=== PATIENT | male | born 1995 | race Caucasian/White ===

== ENCOUNTER 2023-01-22 16:14 | Emergency (ER) | payer OTHER ==
--- NOTE | 2023-01-22 17:37 | ED ---
General Adult HPI - General Source: patient, RN notes reviewed Mode of arrival: ambulatory Limitations: no limitations <Corwin Urbina - Last Filed: 01/22/23 17:36> <Phyllis Angel - Last Filed: 01/23/23 20:16> - General Stated complaint: Head injury Time Seen by Provider: 01/22/23 17:36 - History of Present Illness Initial comments: 27-year-old male presents emergency Department chief complaint of a head injury. Patient states he was at work on Friday when he bent over to pick an object up and hit his head on metal surface. Patient states that he's had pain or sense. Patient was sent here for evaluation. No blood thinners. (Corwin Urbina) Quick note reviewed: This is a 27-year-old male with no significant past medical history presents to the emergency department with a chief complaint of head injury. He reports that he was at work on Friday when he bent over to pick something up off the floor and upon standing up he hit the back of his head on a metal surface. He reports that he has some pain when he tries to move his head to the left. He denies LOC or anticoagluant use. She denies headache, vision changes, vision loss, nausea, vomiting, dizziness, lightheadedness, weakness. He denies any laceration. (Phyllis Angel) - Related Data Allergies Allergy/AdvReac Type Severity Reaction Status Date / Time latex AdvReac Unknown Verified 04/19/22 13:27 Childhood Review of Systems ROS Other: All systems not noted in ROS Statement are negative. <Corwin Urbina - Last Filed: 01/22/23 17:36> ROS Other: All systems not noted in ROS Statement are negative. <Phyllis Angel - Last Filed: 01/23/23 20:16> ROS Statement: Those systems with pertinent positive or pertinent negative responses have been documented in the HPI. Past Medical History Past Medical History: No Reported History History of Any Multi-Drug Resistant Organisms: None Reported Past Surgical History: No Surgical Hx Reported Past Psychological History: No Psychological Hx Reported Smoking Status: Never smoker Past Alcohol Use History: None Reported Past Drug Use History: None Reported <Corwin Urbina - Last Filed: 01/22/23 17:36> General Exam General appearance: alert, in no apparent distress Head exam: Present: atraumatic, normocephalic, normal inspection Eye exam: Present: normal appearance, PERRL, EOMI. Absent: scleral icterus, conjunctival injection, periorbital swelling ENT exam: Present: normal exam, mucous membranes moist Neck exam: Present: normal inspection. Absent: tenderness, meningismus, lymphadenopathy Respiratory exam: Present: normal lung sounds bilaterally. Absent: respiratory distress, wheezes, rales, rhonchi, stridor Cardiovascular Exam: Present: regular rate, normal rhythm, normal heart sounds. Absent: systolic murmur, diastolic murmur, rubs, gallop, clicks GI/Abdominal exam: Present: soft, normal bowel sounds. Absent: distended, tenderness, guarding, rebound, rigid Extremities exam: Present: normal inspection, full ROM, normal capillary refill. Absent: tenderness, pedal edema, joint swelling, calf tenderness Back exam: Present: normal inspection Neurological exam: Present: alert, oriented X3, CN II-XII intact, normal gait Expanded Patient oriented to: Present: person, place, time Speech: Present: fluid speech Cranial nerves: EOM's Intact: Normal Sensory exam: Upper Extremity Light Touch: Normal, Lower Extremity Light Touch: Normal Motor strength exam: RUE: 5, LUE: 5, RLE: 5, LLE: 5 Eye Response: (4) open spontaneously Motor Response: (6) obeys commands Verbal Response: (5) oriented Psychiatric exam: Present: normal affect, normal mood Skin exam: Present: warm, dry, intact, normal color. Absent: rash <Phyllis Angel - Last Filed: 01/23/23 20:16> Course Vital Signs 01/22/23 17:57 Temperature 98.1 F Pulse Rate 78 Respiratory 20 Rate Blood Pressure 124/76 O2 Sat by Pulse 99 Oximetry Medical Decision Making <Phyllis Angel - Last Filed: 01/23/23 20:16> - Medical Decision Making Was pt. sent in by a medical professional or institution (, PA, ONLINE ADVERTISING MANAGER, urgent care, hospital, or care home...) When possible be specific @ -[No] Did you speak to anyone other than the patient for history (EMS, parent, family, police, friend...)? What history was obtained from this source @ -[No] Did you review nursing and triage notes (agree or disagree)? Why? @ -[I reviewed and agree with nursing and triage notes] Were old charts reviewed (outside hosp., previous admission, EMS record, old EKG, old radiological studies, urgent care reports/EKG's, care home records)? Report findings @ -[No old charts were reviewed] Differential Diagnosis (chest pain, altered mental status, abdominal pain women, abdominal pain men, vaginal bleeding, weakness, fever, dyspnea, syncope, headache, dizziness, GI bleed, back pain, seizure, CVA, palpatations, mental health, musculoskeletal)? @ -[not applicable] EKG interpreted by me (3pts min.). @ -[As above] X-rays interpreted by me (1pt min.). @ -[None done] CT interpreted by me (1pt min.). @ CT head and neck without any evidence of an she intracranial process U/S interpreted by me (1pt. min.). @ -[None done] What testing was considered but not performed or refused? (CT, X-rays, U/S, labs)? Why? @ -[None] What meds were considered but not given or refused? Why? @ -[None] Did you discuss the management of the patient with other professionals (pro fessionals i.e. , PA, ONLINE ADVERTISING MANAGER, lab, RT, psych nurse, social media marketing manager, blast furnace supervisor, teacher, animal services officer, assistant case manager)? Give summary @ -[No] Was smoking cessation discussed for >3mins.? @ -[No] Was critical care preformed (if so, how long)? @ -[No] Were there social determinants of health that impacted care today? How? (Homelessness, low income, unemployed, alcoholism, drug addiction, transportation, low edu. Level, literacy, decrease access to med. care, [facility], rehab)? @ -[No] Was there de-escalation of care discussed even if they declined (Discuss DNR or withdrawal of care, Hospice)? DNR status @ -[No] What co-morbidities impacted this encounter? (DM, HTN, Smoking, COPD, CAD, Cancer, CVA, ARF, Chemo, Hep., AIDS, mental health diagnosis, sleep apnea, morbid obesity)? @ -[None] Was patient admitted / discharged? Hospital course, mention meds given and route, prescriptions, significant lab abnormalities, going to OR and other pertinent info. @ -Discharged. This is a 27-year-old male who presents to the emergency department with a chief complaint of head injury. Patient had a thorough history and physical exam performed while in the physical exam is essentially unremarkable. Heart rate regular rate and rhythm, lungs clear to auscultation bilaterally, abdomen soft and nontender. There are no focal neuro deficits noted. Patient is able to ambulate with a steady gait. CT head and C- spine were negative for any acute fracture or intracranial process. I discussed the results in detail with the patient who verbalized understanding and all questions were addressed. Return precautions were discussed. The patient is discharged in stable condition. Case discussed with PIERRE Egan who agrees with plan of care. The patient was encouraged to follow up with his primary care in 1-2 days or as needed. Undiagnosed new problem with uncertain prognosis? @ -[No] Drug Therapy requiring intensive monitoring for toxicity (Heparin, Nitro, Insulin, Cardizem)? @ -[No] Were any procedures done? @ -[No] Diagnosis/symptom? @ -head injury Acute, or Chronic, or Acute on Chronic? @ -acute Uncomplicated (without systemic symptoms) or Complicated (systemic symptoms)? @ -uncomplicated Side effects of treatment? @ -[No] Exacerbation, Progression, or Severe Exacerbation? @ -[No] Poses a threat to life or bodily function? How? (Chest pain, [place], [place], pneumonia, PE, COPD, DKA, ARF, appy, cholecystitis, CVA, Diverticulitis, Homicidal, Suicidal, threat to staff... and all critical care pts) @ -low likelhood (Phyllis Angel) Disposition <Corwin Urbina - Last Filed: 01/22/23 17:36> Is patient prescribed a controlled substance at d/c from ED?: No Time of Disposition: 18:59 <Phyllis Angel - Last Filed: 01/23/23 20:16> Clinical Impression: Head injury Disposition: HOME SELF-CARE Condition: Stable Additional Instructions: Please return to the nearest emergency department if symptoms worsen or persist Please return to the emergency department if symptoms of nausea, vomiting, dizziness, lightheadedness develop Please follow up with her primary care within 1-2 days or as needed Referrals: None,Stated [Primary Care Provider] - 1-2 days
[2023-01-22 18:00] VITALS: BP 124/76; PULSE 78; RESP 20; TEMP 98.1
--- NOTE | 2023-01-22 18:05 | CT ---
EXAMINATION TYPE: CT brain wo con DATE OF EXAM: 01/22/2023 COMPARISON: None HISTORY: headache 2 days post head injury CT DLP: 1202.4 mGycm Automated exposure control for dose reduction was used. Images obtained of the brain with no contrast. Ventricles and sulci appear normal. There is no mass effect or midline shift. No sign of intracranial hemorrhage. No evidence of cerebral edema. The calvarium is intact. There is normal aeration of the mastoid sinuses. The skull base is intact. IMPRESSION: Normal unenhanced head CT scan.
== END 2023-01-22 19:15 | disposition home or self-care (01) ==
LOC: EC 16:14
DX: S09.90XA Unspecified injury of head, initial encounter (principal); Z91.040 Latex allergy status; W22.8XXA Striking against or struck by other objects, initial encounter; Y93.89 Activity, other specified; Y99.0 Civilian activity done for income or pay
CPT/HCPCS: 70450; 99283

== ENCOUNTER 2023-03-02 07:19 | Emergency (ER) | payer OTHER ==
[2023-03-02] MEDS ORDERED: KETOROLAC 15 MG/ML 1 ML VIAL IM STA (07:32)
--- NOTE | 2023-03-02 07:43 | ED ---
General Adult HPI - General Chief complaint: Chest Pain Stated complaint: Rib Pain Time Seen by Provider: 03/02/23 07:21 Source: patient, RN notes reviewed Mode of arrival: ambulatory Limitations: no limitations - History of Present Illness Initial comments: This is a 28-year-old male who presents to the emergency department for rib pain. Patient states that it started last night. Denies any injuries. States that the pain is in the bottom two right ribs. Denies any pain in the abdomen. Pain is worse when he tries to touch his ribs. He has a minor increase in pain with inhalation. Denies any nausea, vomiting, constipation, or diarrhea. Reports a history of problems with his intercostal muscles in the past, and states that it feels similar. Denies any fevers, chills, sore throat, cough, chest pain, palpitations, abdominal pain, nausea, vomiting, diarrhea, back pain, or headaches. MD Complaint: Rib pain - Related Data Previous Rx's Medication Instructions Recorded Ibuprofen 600 mg PO Q8H PRN #15 tab 03/02/23 Lidocaine 5% Oint [Xylocaine 5% 1 applic TOPICAL TID #50 gm 03/02/23 Oint] Allergies Allergy/AdvReac Type Severity Reaction Status Date / Time cinnamon Allergy Anaphylaxis Verified 03/02/23 07:24 latex AdvReac Unknown Verified 03/02/23 07:24 Childhood lettuce AdvReac Unknown Verified 03/02/23 07:24 Review of Systems ROS Statement: Those systems with pertinent positive or pertinent negative responses have been documented in the HPI. ROS Other: All systems not noted in ROS Statement are negative. Past Medical History Past Medical History: No Reported History Additional Past Medical History / Comment(s): migraines History of Any Multi-Drug Resistant Organisms: None Reported Past Surgical History: No Surgical Hx Reported Past Psychological History: No Psychological Hx Reported Smoking Status: Never smoker Past Alcohol Use History: None Reported Past Drug Use History: None Reported General Exam Limitations: no limitations General appearance: alert, in no apparent distress Head exam: Present: atraumatic, normocephalic, normal inspection Respiratory exam: Present: normal lung sounds bilaterally. Absent: respiratory distress, wheezes, rales, rhonchi, stridor Cardiovascular Exam: Present: regular rate, normal rhythm, normal heart sounds. Absent: systolic murmur, diastolic murmur, rubs, gallop, clicks GI/Abdominal exam: Present: soft, other (Tenderness to palpation of the bottom two ribs. ). Absent: distended Expanded GI/Abdominal exam: Absent: Stoner's sign Neurological exam: Present: alert, oriented X3, CN II-XII intact Psychiatric exam: Present: normal affect, normal mood Skin exam: Present: warm, dry, intact, normal color. Absent: rash Course Vital Signs 03/02/23 07:21 Temperature 98.1 F Pulse Rate 79 Respiratory 18 Rate Blood Pressure 117/65 O2 Sat by Pulse 98 Oximetry Medical Decision Making - Medical Decision Making This is a 28-year-old male who presents to the emergency department for rib pain. Was pt. sent in by a medical professional or institution? @ -No Did you speak to anyone other than the patient for history? @ -No Did you review nursing and triage notes? @ -Yes, and I agree, it is accurate with regards to the patient's symptoms. Were old charts reviewed? @ -No Differential Diagnosis? @ -Differential Rib Pain: Costochondritis, rib fracture, pulled muscle, pericarditis, ME, this is not meant to be an all-inclusive list. X-rays interpreted by me (1pt min.)? @ -Chest x-ray obtained, my interpretation identifies no localized consolidations or infiltrates. What testing was considered but not performed? (CT, X-rays, U/S, labs)? Why? @ -None What meds were considered but not given? Why? @ -None Did you discuss the management of the patient with other professionals? @ -No Did you reconcile home meds? @ -No Was smoking cessation discussed for >3mins.? @ -No Was critical care preformed (if so, how long)? @ -No Were there social determinants of health that impacted care today? How? (Homelessness, low income, unemployed, alcoholism, drug addiction, transportation, low edu. Level, literacy, decrease access to med. care, group home, rehab)? @ -No Was there de-escalation of care discussed even if they declined? (Discuss DNR or withdrawal of care, Hospice)? @ -No What co-morbidities impacted this encounter? (DM, HTN, Smoking, COPD, CAD, Cancer, CVA, Hep., AIDS, mental health diagnosis, sleep apnea, morbid obesity)? @ -None Was patient admitted / discharged? @ -Discharged. Chest x-ray obtained revealing no acute findings. Pain is reproducible in nature. I did spend a lot of time palpating the right upper quadrant area to evaluate for signs of gallbladder problems. He has no discomfort when doing this, nor is there pain anywhere else in the abdomen. Symptoms most consistent with something along the lines of an intercostal muscle strain or contusion. Lidocaine patch and IM Toradol provided in the emergency department, which was helpful for his symptoms. Rx for Ibuprofen and Lidocaine cream provided with dosing instructions reviewed. Undiagnosed new problem with uncertain prognosis? @ -None Drug Therapy requiring intensive monitoring for toxicity (Heparin, Nitro, Insulin, Cardizem)? @ -None Were any procedures done? @ -None Diagnosis/symptom? @ -Right sided rib pain Acute, or Chronic, or Acute on Chronic? @ -Acute Uncomplicated (without systemic symptoms) or Complicated (systemic symptoms)? @ -Uncomplicated Side effects of treatment? @ -None Exacerbation, Progression, or Severe Exacerbation] @ -Not applicable Poses a threat to life or bodily function? @ -No Return precautions reviewed in depth, the patient is instructed to return to the emergency department with any new, worsening, or concerning symptoms. Patient verbalized understanding. This case was discussed in detail with the attending ED physician, Dr. Cervantes. Presentation, findings, and treatment plan discussed in detail as well. - Radiology Data Radiology results: report reviewed, image reviewed Disposition Clinical Impression: Rib pain on right side Disposition: HOME SELF-CARE Instructions (If sedation given, give patient instructions): Rib Contusion (ED) Additional Instructions: Return to the emergency department with any new, worsening, or concerning symptoms. Alternate with ibuprofen and Tylenol as needed for pain relief. Apply the lidocaine cream up to three times daily as needed for additional relief. You can also try alternating with ice and heat. Limit physical activity for the meantime as well. Follow up with your primary care provider in 1-2 days. Prescriptions: Ibuprofen 600 mg PO Q8H PRN #15 tab PRN Reason: Pain Lidocaine 5% Oint [Xylocaine 5% Oint] 1 applic TOPICAL TID #50 gm Is patient prescribed a controlled substance at d/c from ED?: No Referrals: None,Stated [Primary Care Provider] - 1-2 days
--- NOTE | 2023-03-02 08:13 | XR ---
EXAMINATION TYPE: XR chest 2V DATE OF EXAM: 03/02/2023 COMPARISON: NONE HISTORY: Chest pain TECHNIQUE: Frontal and lateral views of the chest are obtained. FINDINGS: There is no focal air space opacity. No evidence for pneumothorax. No pleural effusion. The cardiac silhouette size is within normal limits. The osseous structures are grossly intact. IMPRESSION: 1. No acute cardiopulmonary process.
[2023-03-02] MEDS ORDERED: PETROLATUM, WHITE OINT 50 GM TUBE TOPICAL ONE (08:20)
[2023-03-02] MEDS ORDERED: LIDOCAINE 5% PATCH TOPICAL ONE (08:22)
[2023-03-02] MEDS ORDERED: IBUPROFEN 600 MG STARTER PACK 4 TAB BTL PO STA (08:26)
[2023-03-02 08:48] VITALS: BP 121/65; PULSE 611; RESP 16; TEMP 98.6
== END 2023-03-02 08:48 | disposition home or self-care (01) ==
LOC: EC 07:19
DX: R07.81 Pleurodynia (principal); Z91.040 Latex allergy status; Z88.8 Allergy status to other drugs, medicaments and biological substances
CPT/HCPCS: 71046; 99285; 96372; J1885

== ENCOUNTER 2023-07-04 20:22 | Emergency (ER) | payer OTHER ==
[2023-07-04 20:44] VITALS: BP 107/73; PULSE 84; RESP 20; TEMP 98.3
[2023-07-04] MEDS ORDERED: KETOROLAC 15 MG/ML 1 ML VIAL IM STA (21:02)
--- NOTE | 2023-07-04 21:41 | XR ---
EXAMINATION TYPE: XR finger LT DATE OF EXAM: 07/04/2023 9:24 PM INDICATION: Patient age:Male; 28 years old; Reason for study: injury 4th finger; [facility]. COMPARISON: None TECHNIQUE: Frontal, lateral and oblique views of the left finger were obtained. FINDINGS/IMPRESSION: Acute fracture of the dorsal aspect of the fourth digit distal phalanx base. There is associated soft tissue swelling. No additional fractures visualized. No radiopaque foreign bodies.
[2023-07-04] MEDS ORDERED: IBUPROFEN 600 MG STARTER PACK 4 TAB BTL PO STA (21:54)
--- NOTE | 2023-07-04 21:58 | ED ---
Upper Extremity HPI - General Chief Complaint: Extremity Injury, Upper Stated Complaint: Finger Injury Time Seen by Provider: 07/04/23 20:54 Source: patient Mode of arrival: ambulatory Limitations: no limitations - History of Present Illness Initial Comments: Patient is a 28-year-old male who presents to the emergency department with finger injury. Patient crushed his left fourth finger on a door on Friday. His pain has persisted. Patient initially had bruising and redness which she states is improving but the redness has not gone away come completely. He denies fever, chills, nausea, vomiting. - Related Data Previous Rx's Medication Instructions Recorded Ibuprofen 600 mg PO Q8H PRN #15 tab 03/02/23 Lidocaine 5% Oint [Xylocaine 5% 1 applic TOPICAL TID #50 gm 03/02/23 Oint] Ibuprofen [Motrin] 800 mg PO Q6HR #30 tab 07/04/23 Allergies Allergy/AdvReac Type Severity Reaction Status Date / Time cinnamon Allergy Anaphylaxis Verified 07/04/23 20:44 latex AdvReac Unknown Verified 07/04/23 20:44 Childhood lettuce AdvReac Unknown Verified 07/04/23 20:44 Review of Systems ROS Statement: Those systems with pertinent positive or pertinent negative responses have been documented in the HPI. ROS Other: All systems not noted in ROS Statement are negative. Past Medical History Past Medical History: No Reported History Additional Past Medical History / Comment(s): migraines History of Any Multi-Drug Resistant Organisms: None Reported Past Surgical History: No Surgical Hx Reported Past Psychological History: No Psychological Hx Reported Smoking Status: Never smoker Past Alcohol Use History: None Reported Past Drug Use History: None Reported General Exam Limitations: no limitations General appearance: alert Head exam: Present: atraumatic, normocephalic, normal inspection Eye exam: Present: normal appearance, PERRL, EOMI. Absent: scleral icterus, conjunctival injection, periorbital swelling Respiratory exam: Present: normal lung sounds bilaterally. Absent: respiratory distress, wheezes, rales, rhonchi, stridor Cardiovascular Exam: Present: regular rate, normal rhythm, normal heart sounds. Absent: systolic murmur, diastolic murmur, rubs, gallop, clicks Extremities exam: Present: other (Minimal erythema to left fourth digit DIP joint no warmth, blanching, fluctuance, drainable abscess. Tenderness with palpation and movement of the DIP joint. Full range of motion) Course Vital Signs 07/04/23 20:40 Temperature 98.3 F Pulse Rate 84 Respiratory 20 Rate Blood Pressure 107/73 O2 Sat by Pulse 96 Oximetry Procedures - Orthopedic Splinting/Casting Injury #1 Side: left Upper Extremity Immobilizer: synthetic pre-padded splint Medical Decision Making - Medical Decision Making Was pt. sent in by a medical professional or institution (, [facility], POLICE PILOT, urgent care, hospital, or fdc...) When possible be specific @ -No Did you speak to anyone other than the patient for history (EMS, parent, family, police, friend...)? What history was obtained from this source @ -No Did you review nursing and triage notes (agree or disagree)? Why? @ -I reviewed and agree with nursing and triage notes Were old charts reviewed (outside hosp., previous admission, EMS record, old EKG, old radiological studies, urgent care reports/EKG's, fdc records)? Report findings @ -No old charts were reviewed Differential Diagnosis (chest pain, altered mental status, abdominal pain women, abdominal pain men, vaginal bleeding, weakness, fever, dyspnea, syncope, headache, dizziness, GI bleed, back pain, seizure, CVA, palpatations, mental health)? @ -Fracture, dislocation, cellulitis, abscess. This list is not meant to be all-inclusive EKG interpreted by me (3pts min.). @ -As above X-rays interpreted by me (1pt min.). @ -Acute fracture of the dorsal aspect of the fourth distal phalanx base CT interpreted by me (1pt min.). @ -None done U/S interpreted by me (1pt. min.). @ -None done What testing was considered but not performed or refused? (CT, X-rays, U/S, l abs)? Why? @ -None What meds were considered but not given or refused? Why? @ -None Did you discuss the management of the patient with other professionals (professionals i.e. MONA Baker, POLICE PILOT, lab, RT, psych nurse, manager social responsibility, appraiser land, teacher, aoc director combat operations officer, pillowcase sewer)? Give summary @ -No Was smoking cessation discussed for >3mins.? @ -No Was critical care preformed (if so, how long)? @ -No Were there social determinants of health that impacted care today? How? (Homelessness, low income, unemployed, alcoholism, drug addiction, transportation, low edu. Level, literacy, decrease access to med. care, detention, rehab)? @ -No Was there de-escalation of care discussed even if they declined (Discuss DNR or withdrawal of care, Hospice)? DNR status @ -No What co-morbidities impacted this encounter? (DM, HTN, Smoking, COPD, CAD, Cancer, CVA, ARF, Chemo, Hep., AIDS, mental health diagnosis, sleep apnea, morbid obesity)? @ -None Was patient admitted / discharged? Hospital course, mention meds given and route, prescriptions, significant lab abnormalities, going to OR and other pertinent info. @ -Patient presented with finger pain after crush injury. X-ray interpreted by myself showing acute fracture of the dorsal aspect of the fourth distal phalanx base. Patient has minimal erythema which he states is improving. No abrasion noted. No warmth, blanching, fluctuance, drainable abscess. Neurovascularly intact. Finger splint placed. Discussed fracture care in detail. Patient to watch redness closely and return if symptoms persist or worsen Undiagnosed new problem with uncertain prognosis? @ -No Drug Therapy requiring intensive monitoring for toxicity (Heparin, Nitro, Insulin, Cardizem)? @ -No Were any procedures done? @Splinting Diagnosis/symptom? @ -Left finger fracture Acute, or Chronic, or Acute on Chronic? @ -Acute Uncomplicated (without systemic symptoms) or Complicated (systemic symptoms)? @ -[Uncomplicated Side effects of treatment? @ -No Exacerbation, Progression, or Severe Exacerbation? @ -[No] Poses a threat to life or bodily function? How? (Chest pain, [place], [place], pneumonia, PE, COPD, DKA, ARF, appy, cholecystitis, CVA, Diverticulitis, Homicidal, Suicidal, threat to staff... and all critical care pts) @ -[No] Dr. Tello is my attending Disposition Clinical Impression: Finger fracture, left Disposition: HOME SELF-CARE Condition: Good Instructions (If sedation given, give patient instructions): Finger Fracture (ED) Additional Instructions: Ice injury. Keep splint on. Take Motrin as needed for pain. Follow-up with methods specialist in 1-2 days return to the emergency department if you experience new, concerning, or worsening symptoms Prescriptions: Ibuprofen [Motrin] 800 mg PO Q6HR #30 tab Is patient prescribed a controlled substance at d/c from ED?: No Referrals: None,Stated [Primary Care Provider] - 1-2 days Hugo Huff MD [STAFF PHYSICIAN] - 1-2 days
== END 2023-07-04 22:30 | disposition home or self-care (01) ==
LOC: EC 20:22
DX: S62.605A Fracture of unspecified phalanx of left ring finger, initial encounter for closed fracture (principal); Z91.018 Allergy to other foods; Z91.040 Latex allergy status; W23.0XXA Caught, crushed, jammed, or pinched between moving objects, initial encounter
CPT/HCPCS: 73140; 99283; 96372; J1885

== ENCOUNTER 2023-09-26 19:13 | Emergency (ER) | payer OTHER ==
--- NOTE | 2023-09-26 19:35 | ED ---
General Adult HPI - General Chief complaint: ENT Stated complaint: hiccups for 2 days Time Seen by Provider: 09/26/23 19:33 Source: patient, RN notes reviewed Mode of arrival: ambulatory Limitations: no limitations - History of Present Illness Initial comments: 28-year-old male presenting with chief complaint of hiccups for the last 3 days. Patient states that he has started to vomit today due to the persistent hiccups. He has no other symptoms. No injury, chest pain, difficulty breathing, abdominal pain. - Related Data Previous Rx's Medication Instructions Recorded Ibuprofen 600 mg PO Q8H PRN #15 tab 03/02/23 Lidocaine 5% Oint [Xylocaine 5% 1 applic TOPICAL TID #50 gm 03/02/23 Oint] Ibuprofen [Motrin] 800 mg PO Q6HR #30 tab 07/04/23 Allergies Allergy/AdvReac Type Severity Reaction Status Date / Time cinnamon Allergy Anaphylaxis Verified 09/26/23 19:31 latex AdvReac Unknown Verified 09/26/23 19:31 Childhood lettuce AdvReac Unknown Verified 09/26/23 19:31 Review of Systems ROS Statement: Those systems with pertinent positive or pertinent negative responses have been documented in the HPI. ROS Other: All systems not noted in ROS Statement are negative. Past Medical History Past Medical History: No Reported History Additional Past Medical History / Comment(s): migraines History of Any Multi-Drug Resistant Organisms: None Reported Past Surgical History: No Surgical Hx Reported Past Psychological History: No Psychological Hx Reported Smoking Status: Never smoker Past Alcohol Use History: None Reported Past Drug Use History: None Reported General Exam - General Exam Comments Initial Comments: 28-year-old male presenting with chief complaint of persistent hiccups. Symptoms ongoing for 3 days. Patient states that he is starting to vomit. Limitations: no limitations General appearance: alert, in no apparent distress Head exam: Present: atraumatic, normocephalic, normal inspection Eye exam: Present: normal appearance, EOMI Expanded TM/Canal exam: Cerumen Impaction: Right TM, Left TM Neck exam: Present: normal inspection, full ROM Respiratory exam: Present: normal lung sounds bilaterally. Absent: respiratory distress, wheezes, rales, rhonchi, stridor Cardiovascular Exam: Present: regular rate, normal rhythm, normal heart sounds. Absent: systolic murmur, diastolic murmur, rubs, gallop, clicks Neurological exam: Present: alert, oriented X3 Psychiatric exam: Present: normal affect, normal mood Skin exam: Present: warm, dry, intact, normal color. Absent: rash Course Vital Signs 09/26/23 09/26/23 19:28 23:08 Temperature 98.2 F Pulse Rate 78 63 Respiratory 18 18 Rate Blood Pressure 128/75 107/68 O2 Sat by Pulse 100 96 Oximetry Medical Decision Making - Medical Decision Making Was pt. sent in by a medical professional or institution (, MONA, COMMUNICATION MANAGER, urgent care, hospital, or shelter...) When possible be specific @ -No Did you speak to anyone other than the patient for history (EMS, parent, family, police, friend...)? What history was obtained from this source @ -No Did you review nursing and triage notes (agree or disagree)? Why? @ -I reviewed and agree with nursing and triage notes Were old charts reviewed (outside hosp., previous admission, EMS record, old EKG, old radiological studies, urgent care reports/EKG's, shelter records)? Report findings @ -No old charts were reviewed Differential Diagnosis (chest pain, altered mental status, abdominal pain women, abdominal pain men, vaginal bleeding, weakness, fever, dyspnea, syncope, headache, dizziness, GI bleed, back pain, seizure, CVA, palpatations, mental health, musculoskeletal)? @ -not applicable EKG interpreted by me (3pts min.). @ -As above X-rays interpreted by me (1pt min.). @ -None done CT interpreted by me (1pt min.). @ -None done U/S interpreted by me (1pt. min.). @ -None done What testing was considered but not performed or refused? (CT, X-rays, U/S, labs)? Why? @ -None What meds were considered but not given or refused? Why? @ -None Did you discuss the management of the patient with other professionals (professionals i.e. MONA Baker, COMMUNICATION MANAGER, lab, RT, psych nurse, social work manager, machine coremaker, teacher, hydrographical technical officer, correctional counselor/case manager)? Give summary @ -No Was smoking cessation discussed for >3mins.? @ -No Was critical care preformed (if so, how long)? @ -No Were there social determinants of health that impacted care today? How? (Homelessness, low income, unemployed, alcoholism, drug addiction, transportation, low edu. Level, literacy, decrease access to med. care, intermediate, rehab)? @ -No Was there de-escalation of care discussed even if they declined (Discuss DNR or withdrawal of care, Hospice)? DNR status @ -No What co-morbidities impacted this encounter? (DM, HTN, Smoking, COPD, CAD, Cancer, CVA, ARF, Chemo, Hep., AIDS, mental health diagnosis, sleep apnea, morbid obesity)? @ -None Was patient admitted / discharged? Hospital course, mention meds given and route, prescriptions, significant lab abnormalities, going to OR and other pertinent info. @ -28-year-old male presenting with chief complaint of hiccups for the last 3 days. History and physical examination are conducted. On physical exam there is bilateral cerumen impaction. The ears are irrigated and patient is also given 25 mg of Thorazine IM. On reassessment patient reports that his hiccupps have stopped. Follow-up with PCP. Report back to ER with any new or worsening symptoms. Discussed return parameters and answered all questions. Patient conveyed verbal understanding and agreed to the plan. I discussed this case in detail with my attending Dr. Tello Undiagnosed new problem with uncertain prognosis? @ -No Drug Therapy requiring intensive monitoring for toxicity (Heparin, Nitro, Insulin, Cardizem)? @ -No Were any procedures done? @ -No Diagnosis/symptom? @ -Hiccups Acute, or Chronic, or Acute on Chronic? @ -acute Uncomplicated (without systemic symptoms) or Complicated (systemic symptoms)? @ -Uncomplicated Side effects of treatment? @ -No Exacerbation, Progression, or Severe Exacerbation? @ -No Poses a threat to life or bodily function? How? (Chest pain, [place], [place], pneumonia, PE, COPD, DKA, ARF, appy, cholecystitis, CVA, Diverticulitis, Homicidal, Suicidal, threat to staff... and all critical care pts) @ -No Disposition Clinical Impression: Hiccups Disposition: HOME SELF-CARE Condition: Good Instructions (If sedation given, give patient instructions): Hiccups (ED) Additional Instructions: Follow-up with PCP. Report back to ER with any new or worsening symptoms. Is patient prescribed a controlled substance at d/c from ED?: No Referrals: None,Stated [Primary Care Provider] - 1-2 days Time of Disposition: 22:52
[2023-09-26 19:37] VITALS: RESP 18; TEMP 98.2
[2023-09-26] MEDS ORDERED: chlorproMAZINE 25 MG/ML 2 ML AMP IM STA (21:28)
[2023-09-26 23:16] VITALS: BP 107/68; PULSE 63
== END 2023-09-26 23:50 | disposition home or self-care (01) ==
LOC: EC 19:13
DX: R06.6 Hiccough (principal); H61.23 Impacted cerumen, bilateral; Z91.018 Allergy to other foods; Z91.040 Latex allergy status
CPT/HCPCS: 99283; 96372; J3230

== ENCOUNTER 2023-10-16 21:45 | Emergency (ER) | payer OTHER ==
[2023-10-16 22:27] VITALS: RESP 18; TEMP 98.4
--- NOTE | 2023-10-16 23:24 | ED ---
General Adult HPI - General Source: patient, RN notes reviewed Mode of arrival: ambulatory Limitations: no limitations <Yadira Haynes - Last Filed: 10/16/23 23:22> - General Source: RN notes reviewed, old records reviewed Limitations: no limitations - History of Present Illness -: days(s) Location: back Radiation: non-radiation Severity scale (1-10): 4 Quality: aching Consistency: constant Improves with: none Worsens with: none Associated Symptoms: denies other symptoms Treatments Prior to Arrival: none <Noah Montana - Last Filed: 10/25/23 17:22> - General Chief complaint: Back Pain/Injury Stated complaint: Numbness of back Time Seen by Provider: 10/16/23 23:22 - History of Present Illness Initial comments: 28 year old male presents to the emergency department for back pain and "numbness." He states that he has noticed some decreased sensation in his midback about 2 weeks ago. Yesterday he states that he noticed an area that he was "not able to feel" on his mid back. Denies fever, chill, loss of bowel or bladder function, urinary retention. (Yadira Haynes) This is a 28-year-old male to the emergency department today for evaluation of back pain numbness and tingling in his back area. Middle upper aspect of his back. Patient is getting massage from his began to notice the symptoms. They have been persistent for a few days now. He has no injury or trauma. No shortness of breath no chest pain. No recent fevers no nausea vomiting or diarrhea no other complaints no medical history takes no medications (Noah Montana) - Related Data Previous Rx's Medication Instructions Recorded Ibuprofen 600 mg PO Q8H PRN #15 tab 03/02/23 Lidocaine 5% Oint [Xylocaine 5% 1 applic TOPICAL TID #50 gm 03/02/23 Oint] Ibuprofen [Motrin] 800 mg PO Q6HR #30 tab 07/04/23 Allergies Allergy/AdvReac Type Severity Reaction Status Date / Time cinnamon Allergy Anaphylaxis Verified 10/16/23 22:09 latex AdvReac Unknown Verified 10/16/23 22:09 Childhood lettuce AdvReac Unknown Verified 10/16/23 22:09 Review of Systems ROS Other: All systems not noted in ROS Statement are negative. <Yadira Haynes - Last Filed: 10/16/23 23:22> ROS Other: All systems not noted in ROS Statement are negative. <Noah Montana - Last Filed: 10/25/23 17:22> ROS Statement: Those systems with pertinent positive or pertinent negative responses have been documented in the HPI. Past Medical History Past Medical History: No Reported History Additional Past Medical History / Comment(s): migraines History of Any Multi-Drug Resistant Organisms: None Reported Past Surgical History: No Surgical Hx Reported Past Psychological History: No Psychological Hx Reported Smoking Status: Never smoker Past Alcohol Use History: None Reported Past Drug Use History: None Reported <Glenn Haynessey - Last Filed: 10/16/23 23:22> General Exam Limitations: no limitations <Glenn Haynessey - Last Filed: 10/16/23 23:22> General appearance: alert, in no apparent distress Head exam: Present: atraumatic, normocephalic, normal inspection Eye exam: Present: normal appearance, PERRL, EOMI. Absent: scleral icterus, conjunctival injection, periorbital swelling ENT exam: Present: normal exam, mucous membranes moist Neck exam: Present: normal inspection. Absent: tenderness, meningismus, lym phadenopathy Respiratory exam: Present: normal lung sounds bilaterally. Absent: respiratory distress, wheezes, rales, rhonchi, stridor Cardiovascular Exam: Present: regular rate, normal rhythm, normal heart sounds. Absent: systolic murmur, diastolic murmur, rubs, gallop, clicks GI/Abdominal exam: Present: soft, normal bowel sounds. Absent: distended, tenderness, guarding, rebound, rigid Extremities exam: Present: normal inspection, full ROM, normal capillary refill. Absent: tenderness, pedal edema, joint swelling, calf tenderness Back exam: Present: normal inspection Neurological exam: Present: alert, oriented X3, CN II-XII intact Psychiatric exam: Present: normal affect, normal mood Skin exam: Present: warm, dry, intact, normal color. Absent: rash <Noah Montana - Last Filed: 10/25/23 17:22> - General Exam Comments Initial Comments: Visual Physical Exam Vital signs reviewed General: Well-appearing, nontoxic, no acute distress. Head: Normocephalic, atraumatic Eyes: PERRLA, EOMI ENT: Airway patent Chest: Nonlabored breathing Skin: No visual rash, normal skin tone Neuro: Alert and oriented 3 Musculoskeletal: No gross abnormalities (Yadira Haynes) Course <Noah Montana - Last Filed: 10/25/23 17:22> Vital Signs 10/16/23 10/17/23 22:08 02:30 Temperature 98.4 F 98.4 F Pulse Rate 82 62 Respiratory 18 18 Rate Blood Pressure 115/72 106/68 O2 Sat by Pulse 98 97 Oximetry - Reevaluation(s) Reevaluation #1: 10/17/23 02:05 Medical records reviewed (Noah Montana) Reevaluation #2: 10/17/23 02:05 patient symptoms are relatively unchanged (Noah Montana) Reevaluation #3: 10/17/23 02:05 patient for results and questions answered (Noah Montana) Reevaluation #4: 10/17/23 02:05 Was pt. sent in by a medical professional or institution (, PA, [employer] INTERFACE DEVELOPER, urgent care, hospital, or usp...) When possible be specific @ -no Did you speak to anyone other than the patient for history (EMS, parent, family, police, friend...)? What history was obtained from this source @ -no Did you review nursing and triage notes (agree or disagree)? Why? @ -agree Are old charts reviewed (outside hosp., previous admission, EMS record, old EKG, old radiological studies, urgent care reports/EKG's, usp records)? Report findings @ -yes Differential Diagnosis (chest pain, altered mental status, abdominal pain women, abdominal pain men, vaginal bleeding, weakness, fever, dyspnea, syncope, headache, dizziness, GI bleed, back pain, seizure, CVA, palpatations, mental health, musculoskeletal)? @ -prior EKG interpreted by me (3pts min.). @ -no X-rays interpreted by me (1pt min.). @ -yes negative for acute disease CT interpreted by me (1pt min.). @ -no U/S interpreted by me (1pt. min.). @ -no What testing was considered but not performed or refused? (CT, X-rays, U/S, labs)? Why? @ -none What meds were considered but not given or refused? Why? @ -none Did you discuss the management of the patient with other professionals (professionals i.e. , PA, [employer] INTERFACE DEVELOPER, lab, RT, psych nurse, director social service, information assistant, teacher, first aid officer, casework manager)? Give summary @ -no Was smoking cessation discussed for >3mins.? @ -no Was critical care preformed (if so, how long)? @ -no Were there social determinants of health that impacted care today? How? (Homelessness, low income, unemployed, alcoholism, drug addiction, transportation, low edu. Level, literacy, decrease access to med. care, [facility], rehab)? @ -none Was there de-escalation of care discussed even if they declined (Discuss DNR or withdrawal of care, Hospice)? DNR status @ -no What co-morbidities impacted this encounter? (DM, HTN, Smoking, COPD, CAD, Cancer, CVA, ARF, Chemo, Hep., AIDS, mental health diagnosis, sleep apnea, morbid obesity)? @ -none Was patient admitted / discharged? Hospital course, mention meds given and route, prescriptions, significant lab abnormalities, going to OR and other pertinent info. @ - 28 male to the ER for evaluation of some back pain appears to numbness and tingling of his back. Imaging is negative here in the ER. Patient is in no acute distress and can be discharged home \\ Discharge Undiagnosed new problem with uncertain prognosis? @ -no Drug Therapy requiring intensive monitoring for toxicity (Heparin, Nitro, Insulin, Cardizem)? @ -no Were any procedures done? @ -no Diagnosis/symptom? @ -Acute back pain Acute, or Chronic, or Acute on Chronic? @ -Acute Uncomplicated (without systemic symptoms) or Complicated (systemic symptoms)? @ -Complicated Side effects of treatment? @ -no Exacerbation, Progression, or Severe Exacerbation? @ -exacerbation Poses a threat to life or bodily function? How? (Chest pain, [place], [place], pneumonia, PE, COPD, DKA, ARF, appy, cholecystitis, CVA, Diverticulitis, Homicidal, Suicidal, threat to staff... and all critical care pts) @ -yes (Noah Montana) Reevaluation #5: Differential Back Pain: Strain, zoster, cauda equina syndrome, epidural abscess, vertebral osteomyelitis, discitis, fracture, subluxation, disc herniation, DJD, spinal stenosis, dissection, AAA, pancreatitis, peptic ulcer disease, pyelonephritis, kidney stone, this is not meant to be an all-inclusive list. (Noah Montana) Medical Decision Making <Yadira Haynes - Last Filed: 10/16/23 23:22> - Radiology Data Radiology results: report reviewed (x-ray chest and back and negative for acute disease), image reviewed <Noah Montana - Last Filed: 10/25/23 17:22> - Medical Decision Making Quick note preformed by Yadira Haynes PA-C (Yadira Haynes) 28 male to the ER for evaluation of some back pain appears to numbness and tingling of his back. Imaging is negative here in the ER. Patient is in no acute distress and can be discharged home (Noah Montana) Disposition <Yadira Haynes - Last Filed: 10/16/23 23:22> Is patient prescribed a controlled substance at d/c from ED?: No Time of Disposition: 02:10 <Noah Montana - Last Filed: 10/25/23 17:22> Clinical Impression: Thoracic back pain, Mid back pain, Paresthesia Disposition: HOME SELF-CARE Condition: Fair Instructions (If sedation given, give patient instructions): Paresthesia (ED) Referrals: None,Stated [Primary Care Provider] - 1-2 days
[2023-10-17] MEDS ORDERED: KETOROLAC 15 MG/ML 1 ML VIAL IM STA (01:08)
[2023-10-17] MEDS ORDERED: dexAMETHasone 2 MG TAB PO STA (01:08)
[2023-10-17 02:36] VITALS: BP 106/68; PULSE 62
--- NOTE | 2023-10-17 03:56 | XR ---
EXAM: XR Chest, 2 Views CLINICAL HISTORY: ITS.REASON XR Reason: pain TECHNIQUE: Frontal and lateral views of the chest. COMPARISON: No relevant prior studies available. FINDINGS: Lungs: No consolidation or mass. Pleural space: No effusion. Heart: No cardiomegaly. Bones/joints: No acute findings. IMPRESSION: No acute cardiopulmonary process.
--- NOTE | 2023-10-17 03:57 | XR ---
EXAM: XR Thoracic Spine, 2 Views CLINICAL HISTORY: ITS.REASON XR Reason: pain TECHNIQUE: Frontal and lateral views of the thoracic spine. COMPARISON: No relevant prior studies available. FINDINGS: Vertebrae: No acute fracture. Normal sagittal alignment. Minimal dextroscoliosis Disc spaces: No significant narrowing. Soft tissues: Unremarkable. IMPRESSION: No acute osseous findings.
== END 2023-10-17 02:31 | disposition home or self-care (01) ==
LOC: EC 21:45
DX: M54.6 Pain in thoracic spine (principal); R20.2 Paresthesia of skin; Z91.040 Latex allergy status; Z88.8 Allergy status to other drugs, medicaments and biological substances
CPT/HCPCS: 99283 ×2; 96372 ×2; 72070; 71046; J8540; J1885

== ENCOUNTER 2024-01-27 18:58 | Emergency (ER) | payer OTHER ==
--- NOTE | 2024-01-27 19:23 | ED ---
General Adult HPI - General Stated complaint: cough runny nose NVD Time Seen by Provider: 01/27/24 19:23 - History of Present Illness Initial comments: 28-year-old male presenting to the ED with a chief complaint of URI symptoms. Patient states 2 days ago onset of cough and runny nose. Also did note some associated nausea and vomiting however at this time that is resolved. No fever or chills. No chest pain or shortness of breath. - Related Data Previous Rx's Medication Instructions Recorded Ibuprofen 600 mg PO Q8H PRN #15 tab 03/02/23 Lidocaine 5% Oint [Xylocaine 5% 1 applic TOPICAL TID #50 gm 03/02/23 Oint] Ibuprofen [Motrin] 800 mg PO Q6HR #30 tab 07/04/23 Allergies Allergy/AdvReac Type Severity Reaction Status Date / Time cinnamon Allergy Anaphylaxis Verified 01/27/24 19:49 latex AdvReac Unknown Verified 01/27/24 19:49 Childhood lettuce AdvReac Unknown Verified 01/27/24 19:49 Review of Systems ROS Statement: Those systems with pertinent positive or pertinent negative responses have been documented in the HPI. ROS Other: All systems not noted in ROS Statement are negative. Past Medical History Past Medical History: No Reported History Additional Past Medical History / Comment(s): migraines History of Any Multi-Drug Resistant Organisms: None Reported Past Surgical History: No Surgical Hx Reported Past Psychological History: No Psychological Hx Reported Smoking Status: Never smoker Past Alcohol Use History: None Reported Past Drug Use History: None Reported General Exam - General Exam Comments Initial Comments: Visual Physical Exam Vital signs reviewed General: Well-appearing, nontoxic, no acute distress. Head: Normocephalic, atraumatic Eyes: PERRLA, EOMI ENT: Airway patent Chest: Nonlabored breathing Skin: No visual rash, normal skin tone Neuro: Alert and oriented 3 Musculoskeletal: No gross abnormalities General appearance: alert, in no apparent distress Eye exam: Present: normal appearance ENT exam: Present: mucous membranes moist Neck exam: Present: normal inspection Respiratory exam: Present: normal lung sounds bilaterally. Absent: respiratory distress, accessory muscle use Cardiovascular Exam: Present: regular rate, normal rhythm GI/Abdominal exam: Present: soft Neurological exam: Present: alert, oriented X3 Skin exam: Present: warm, dry Course Vital Signs 01/27/24 19:38 Temperature 98.8 F Pulse Rate 102 H Respiratory 20 Rate Blood Pressure 120/87 O2 Sat by Pulse 99 Oximetry Medical Decision Making - Medical Decision Making Quicknote portion performed. Signed Mario Rene PA-C Was pt. sent in by a medical professional or institution (MONA Baker, [employer] MANAGER, urgent care, hospital, or fpc...) When possible be specific @ -No Did you speak to anyone other than the patient for history (EMS, parent, family, police, friend...)? What history was obtained from this source @ -No Did you review nursing and triage notes (agree or disagree)? Why? @ -I reviewed and agree with nursing and triage notes Were old charts reviewed (outside hosp., previous admission, EMS record, old EKG, old radiological studies, urgent care reports/EKG's, fpc records)? Report findings @ -No old charts were reviewed Differential Diagnosis (chest pain, altered mental status, abdominal pain women, abdominal pain men, vaginal bleeding, weakness, fever, dyspnea, syncope, headache, dizziness, GI bleed, back pain, seizure, CVA, palpatations, mental health, musculoskeletal)? @ -Differential Dyspnea: Coronary syndrome, arrhythmia, tamponade, asthma, COPD, pulmonary embolism, pneumonia, pneumothorax, pulmonary effusion, anaphylaxis, diabetic ketoacidosis, flailed chest, pulmonary contusion, diaphragmatic rupture, anemia, neuromuscular, this is not meant to be an all-inclusive list. EKG interpreted by me (3pts min.). @ -None X-rays interpreted by me (1pt min.). @ -Chest x-ray interpreted me which revealed no evidence of acute finding. CT interpreted by me (1pt min.). @ -None done U/S interpreted by me (1pt. min.). @ -None done What testing was considered but not performed or refused? (CT, X-rays, U/S, labs)? Why? @ -None What meds were considered but not given or refused? Why? @ -None Did you discuss the management of the patient with other professionals (professionals i.e. MONA Baker, [employer] MANAGER, lab, RT, psych nurse, social media sr strategy manager, vice president of instruction, teacher, certification officer, heel caser)? Give summary @ -No Was smoking cessation discussed for >3mins.? @ -No Was critical care preformed (if so, how long)? @ -No Were there social determinants of health that impacted care today? How? (Homelessness, low income, unemployed, alcoholism, drug addiction, transportation, low edu. Level, literacy, decrease access to med. care, [facility], rehab)? @ -No Was there de-escalation of care discussed even if they declined (Discuss DNR or withdrawal of care, Hospice)? DNR status @ -No What co-morbidities impacted this encounter? (DM, HTN, Smoking, COPD, CAD, Cancer, CVA, ARF, Chemo, Hep., AIDS, mental health diagnosis, sleep apnea, morbid obesity)? @ -None Was patient admitted / discharged? Hospital course, mention meds given and route, prescriptions, significant lab abnormalities, going to OR and other pertinent info. @ -Discharge 28-year-old male presented to the ED with complaints of rhinorrhea and cough for the past 2 days. Exam benign at this time. Vital signs stable afebrile. Serology panel unremarkable. Chest x-ray revealed no evidence of acute process. Patient discharged home in stable condition. Symptoms likely viral in nature. Advised supportive care. Discussed return precautions with patient who verbalized.. Undiagnosed new problem with uncertain prognosis? @ -No Drug Therapy requiring intensive monitoring for toxicity (Heparin, Nitro, Insulin, Cardizem)? @ -No Were any procedures done? @ -No Diagnosis/symptom? @ -Viral URI Acute, or Chronic, or Acute on Chronic? @ -Acute Uncomplicated (without systemic symptoms) or Complicated (systemic symptoms)? @ -Uncomplicated Side effects of treatment? @ -No Exacerbation, Progression, or Severe Exacerbation? @ -No Poses a threat to life or bodily function? How? (Chest pain, [place], [place], pneumonia, PE, COPD, DKA, ARF, appy, cholecystitis, CVA, Diverticulitis, Homicidal, Suicidal, threat to staff... and all critical care pts) @ -No - Lab Data Lab Results 01/27/24 Range/Units 19:56 Influenza Type A (PCR) Not Detected (Not Detectd) Influenza Type B (PCR) Not Detected (Not Detectd) RSV (PCR) Not Detected (Not Detectd) SARS-CoV-2 (PCR) Not Detected (Not Detectd) Disposition Clinical Impression: Viral URI Disposition: HOME SELF-CARE Condition: Good Instructions (If sedation given, give patient instructions): Upper Respiratory Infection (ED) Additional Instructions: Please return to the Emergency Department if symptoms worsen or any other concerns. Monitor for worsening symptoms as discussed. Please use [id number] medications as needed for symptoms. Follow-up with your primary care provider. Is patient prescribed a controlled substance at d/c from ED?: No Referrals: None,Stated [Primary Care Provider] - 1-2 days Time of Disposition: 21:39
[2024-01-27 20:18] VITALS: BP 120/87; PULSE 102; RESP 20; TEMP 98.8
--- NOTE | 2024-01-27 21:19 | XR ---
EXAMINATION TYPE: XR chest 2V DATE OF EXAM: 01/27/2024 7:58 PM CLINICAL INDICATION:Male, 28 years old with history of r/o pna; [facility] COMPARISON: 10/17/2023 TECHNIQUE: XR chest 2V. Frontal and lateral views of the chest.. FINDINGS: Lines/Tubes/Devices: No indwelling lines are seen. Heart/mediastinum: Heart size is normal. Mediastinum appears normal. Pulmonary vascularity: Not increased, Lungs/Pleura: There is no evidence of pleural effusion, focal consolidation, or pneumothorax. Simila r appearance of mild coarsening of the interstitium likely chronic changes. Musculoskeletal: No acute osseous abnormality demonstrated in the limits of the exam. Other findings: None. IMPRESSION: No acute findings, or significant interval change.
== END 2024-01-27 21:43 | disposition home or self-care (01) ==
LOC: EC 18:58
DX: J06.9 Acute upper respiratory infection, unspecified (principal); Z91.040 Latex allergy status; Z88.8 Allergy status to other drugs, medicaments and biological substances
CPT/HCPCS: 71046; 87636; 99284